=== PATIENT | female | born 1970 | race Caucasian/White ===

== ENCOUNTER 2020-07-07 22:09 | Emergency (ER) | payer BC, SELFPAY ==
[2020-07-07 22:19] VITALS: BP 191/89; PULSE 100; RESP 18; TEMP 36.6; O2SAT 98
--- NOTE | 2020-07-07 22:34 | CT_ITS ---
Procedure: CT ANGIO NECK CT ANGIO HEAD CLINICAL HISTORY: dizziness Dizziness, left upper extremity numbness and tingling COMPARISON: CT CT ANGIO HEAD from 07/07/2020 TECHNIQUE: IV Contrast: 100ml Isovue 370 Axial images obtained with sagittal and coronal reformats. All CT scans at the facility use one or more dose reduction, viz: automated exposure control, ma/kV adjustment per patient size (including targeted exams where dose is matched to indication, i.e. head), or iterative reconstruction technique. FINDINGS: CTA NECK: The aortic arch, great vessels, common carotids, internal carotids, and vertebrals have an unremarkable appearance. No stenosis occlusion or dissection evident. No enhancing lesions. Soft tissues of the upper chest and neck are unremarkable. CTA head: No aneurysm, AVM, dissection or major branch occlusion is evident. There does appear to be small infundibulum I projecting off the supraclinoid portion of the left ICA at the anterior choroidal and posterior communicating artery origins. No intracranial enhancing lesion.. IMPRESSION: Negative CTA of the neck and head Dictated by: Yannick Stone MD 07/08/2020 09:34 Yannick Stone MD in [facility] 07/08/2020 09:34
--- NOTE | 2020-07-07 22:34 | ECG_ITS ---
APPROVED REPORT Exam: Resting ECG HR:81 bpm ECG Measurements Heart Rate 81 AXES MI 158 P 69 QRSd 102 QRS 52 QT 382 T 45 QTc 443 Conclusion Normal sinus rhythm Normal ECG Electronically signed by : Rajan Echols, 07/08/2020 11:57:15
--- NOTE | 2020-07-07 22:34 | XR_ITS ---
PROCEDURE: XR CHEST 2V CLINICAL HISTORY: dizziness Smoker, dizziness, pain COMPARISON: CR Chest from 01/05/2019 FINDINGS: The cardiomediastinal silhouette and pulmonary vascularity are within normal limits. The lungs are clear without infiltrates, suspicious nodules, or pleural effusions. No acute bony abnormalities. IMPRESSION: No acute findings. Dictated by: Yannick Stone MD 07/08/2020 06:11 Yannick Stone MD in [facility] 07/08/2020 06:11
--- NOTE | 2020-07-07 22:35 | HMH.EDDIZZ ---
ED Disposition Clinical Impression: Vertigo, Hypertensive urgency Disposition: Home, Self-Care Condition on Discharge: Good Instructions: Vertigo Additional Instructions: monitor bp and see pcp for follow up Referrals: Alanna Beck [Primary Care Provider] - - Critical Care Critical Care Time: No Attestation: On 07/07/20, the high probability of a clinically significant, sudden or life threatening deterioration of the following system(s) required my full and direct attention, intervention and personal management. The time I documented below is in addition to time spent performing reported procedures but includes the following listed in this critical care notation. Medical Decision Making - Medical Records Medical records reviewed: Yes: I reviewed the patient's medical records. - Mayur Inquiry Pt receiving controlled substance: No Vital Signs: 07/07/20 22:19 07/07/20 22:59 07/07/20 23:43 Temperature 97.8 F Temperature Source Oral Pulse Rate [Right] 100 H 84 81 Respiratory Rate 18 16 16 Blood Pressure [Right Arm] 191/89 H 151/84 H 152/82 H Blood Pressure Mean [Right Arm] 123 106 105 Blood Pressure Source [Right Arm] Automatic Cuff Automatic Cuff Automatic Cuff Blood Pressure Position [Right Arm] Sitting Sitting Sitting 02 Sat by Pulse Oximetry 98 98 96 Oxygen Delivery Method Room Air Room Air Room Air 07/08/20 00:30 Temperature Temperature Source Pulse Rate [Right] 92 H Respiratory Rate Blood Pressure [Right Arm] 153/83 H Blood Pressure Mean [Right Arm] 106 Blood Pressure Source [Right Arm] Automatic Cuff Blood Pressure Position [Right Arm] Supine 02 Sat by Pulse Oximetry 96 Oxygen Delivery Method Room Air - Lab Data Lab results reviewed: Yes: I reviewed the patient's lab results. Lab Results 07/07/20 22:45: WBC 11.2 H, RBC 4.82, Hgb 15.1, Hct 43.8, MCV 90.9, MCH 31.4 H, MCHC 34.6, RDW 13.9, Plt Count 334, MPV 8.4, Neut % (Auto) 66.8, Lymph % (Auto) 23.6, [place] % (Auto) 6.4, Eos % (Auto) 2.2, Baso % (Auto) 1.1, Neut # (Auto) 7.5, Lymph # (Auto) 2.7, [place] # (Auto) 0.7, Eos # (Auto) 0.2, Baso # (Auto) 0.1 07/07/20 22:45: Sodium 141, Potassium 3.8, Chloride 106, Carbon Dioxide 28, Anion Gap 10.8, BUN 11, Creatinine 0.70, Estimated Creat Clear 119, Estimated GFR 88, Est GFR ( Amer) 107, Glucose 126 H, Calcium 10.0, Total Bilirubin 0.3, Direct Bilirubin 0.2, Conjugated Bilirubin 0.0, Indirect Bilirubin 0.1, Unconjugated Bilirubin 0.2, AST 36, ALT 30, Alkaline Phosphatase 147 H, Troponin I < 0.01, Total Protein 8.4 H, Albumin 4.9 07/08/20 00:00: SARS-CoV-2 IgG Ab (Rapid) Negative, SARS-CoV-2 IgM Ab (Rapid) Negative Result diagrams: 07/07/20 22:45 07/07/20 22:45 Orders (Tests/Meds): ED MEDICATIONS Generic Name Dose Route Start Last Admin Trade Name Freq PRN Reason Stop Dose Admin Sodium Chloride 1,000 mls @ 999 mls/hr 07/07/20 22:45 07/07/20 23:03 Sod Chlor 0.9% 1000ml Bag IV 07/07/20 23:45 999 mls/hr .Q1H1M CARMEN Administration Sodium Chloride 1,000 mls @ 999 mls/hr 07/08/20 00:30 07/08/20 00:25 Sod Chlor 0.9% 1000ml Bag IV 07/08/20 01:30 999 mls/hr .Q1H1M CARMEN Administration Discontinued Medications Generic Name Dose Route Start Last Admin Trade Name Freq PRN Reason Stop Dose Admin Iopamidol 100 ml 07/08/20 00:22 07/08/20 00:23 Iopamidol-370 (76%);100ml Bottle IV 07/08/20 00:23 100 ml ONCE ONE Administration Sodium Chloride 40 ml 07/08/20 00:22 07/08/20 00:23 0.9 % Sodium Chloride 50 Ml Vial IV 07/08/20 00:23 40 ml ONCE ONE Administration Sodium Chloride 10 ml 07/08/20 00:22 07/08/20 00:23 Sodium Chloride 0.9% 10ml Syr (Rad Only) IV 07/08/20 00:23 10 ml ONCE ONE Administration ORDERS Category Date Time Status CT angio head Stat Cat Scan 07/07/20 22:[address] angio neck Stat Cat Scan 07/07/20 22:[address] head/brain wo con Stat Cat Scan 07/07/20 22:40 Taken XR chest 2V Stat Exams 07/07/20 22:34 Taken
--- NOTE | 2020-07-07 22:40 | CT_ITS ---
PROCEDURE: CT HEAD/BRAIN WO CON CLINICAL INDICATION: DIZZINESS Dizziness and left arm tingling COMPARISON: No exams were available for comparison TECHNIQUE: Axial images obtained. All CT scans at the facility use one or more dose reduction, viz: automated exposure control, ma/kV adjustment per patient size (including targeted exams where dose is matched to indication, i.e. head), or iterative reconstruction technique. FINDINGS: No midline shift, mass effect, intracranial hemorrhage, hydrocephalus, or extra-axial fluid collection is evident. The calvarium has an unremarkable appearance. No mastoid effusion. No sinus air-fluid level. IMPRESSION: No acute intracranial finding Dictated by: Yannick Stone MD 07/08/2020 06:07 Yannick Stone MD in [place] 07/08/2020 06:07
[2020-07-07 22:59] VITALS: BP 151/84; PULSE 84; RESP 16; O2SAT 98
[2020-07-07 23:19] LABS: Basophils # 0.1 K/mm3 (0-0.2); Basophils % 1.1 % (0.1-2.0); Eosinophils # 0.2 K/mm3 (0.0-0.4); Eosinophils % 2.2 % (0.1-12.0); Hematocrit 43.8 % (37.0-47.0); Hemoglobin 15.1 g/dL (12.2-16.2); Lymphocytes # 2.7 K/mm3 (0.7-4.5); Lymphocytes % 23.6 % (10-50); Mean Corpuscular HGB Conc 34.6 g/dL (31.8-35.4); Mean Corpuscular Hemoglobin 31.4 pg (27.0-31.2); Mean Corpuscular Volume 90.9 fl (81-99); Mean Platelet Volume 8.4 fl (7.4-10.4); Monocytes # 0.7 K/mm3 (0.1-1.0); Monocytes % 6.4 % (1.7-9.3); Neutrophils # 7.5 K/mm3 (1.8-7.8); Neutrophils % 66.8 % (37.0-80.0); Platelet Count 334 K/mm3 (142-424); Red Blood Count 4.82 M/mm3 (4.20-5.40); Red Cell Distribution Width 13.9 % (11.5-17.5); White Blood Count 11.2 K/mm3 (4.8-10.8)
[2020-07-07 23:24] LABS: Chloride 106 mmol/L (98-107)
[2020-07-07 23:25] LABS: Potassium 3.8 mmoL/L (3.5-5.1); Sodium 141 mmol/L (136-145)
[2020-07-07 23:27] LABS: Alanine Aminotransferase 30 U/L (12-78); Albumin Level 4.9 g/dl (3.5-5.0); Alkaline Phosphatase 147 U/L (38-126); Anion Gap 10.8 mEq/L (5-15); Aspartate Amino Transferase 36 U/L (14-36); Bilirubin,Direct 0.2 mg/dl (0.0-0.4); Bilirubin,Indirect 0.1 mg/dL (0.0-0.9); Bilirubin,Total 0.3 mg/dl (0.2-1.3); Bilirubin,Unconjugated 0.2 mg/dL (0.0-1.1); Blood Urea Nitrogen 11 mg/dl (7-17); Carbon Dioxide 28 mmol/L (22.0-30.0); Creatinine Clearance Estimated 119 mL/min (50-200); Estimated Glomerular Filt Rate 88 ml/min (>60); GFR (African American) 107 ML/MIN (>60); Total Protein,Serum 8.4 g/dl (6.3-8.2)
[2020-07-07 23:28] LABS: Glucose 126 mg/dl (74-100)
[2020-07-07 23:43] VITALS: BP 152/82; PULSE 81; RESP 16; O2SAT 96
--- NOTE | 2020-07-07 23:43 | PC.NURSE ---
pt to RAD
[2020-07-07 23:47] LABS: Troponin I < 0.01 ng/ml (0.00-0.034)
--- NOTE | 2020-07-08 00:11 | PC.NURSE ---
pt back from RAD
[2020-07-08 00:30] VITALS: BP 153/83; PULSE 92; O2SAT 96
[2020-07-08 00:41] LABS: Coronavirus 19 IgG Antibody Negative (Negative); Coronavirus 19 IgM Antibody Negative (Negative)
[2020-07-08 00:56] VITALS: BP 151/89; PULSE 77; RESP 16; TEMP 36.9
[2020-07-08 01:40] LABS: T4 (Thyroxine) 9.8 ug/dl (5.53-11.0)
[2020-07-08 01:54] LABS: Thyroid Stimulating Hormone 1.89 uIU/mL (0.465-4.68)
== END 2020-07-08 01:08 | disposition home or self-care (01) ==
PROVIDERS: Emergency Provider Emergency Medicine; PCP Nurse Practitioner Family
DX: I16.0 Hypertensive urgency (principal); Z01.84 Encounter for antibody response examination; F17.210 Nicotine dependence, cigarettes, uncomplicated
CPT/HCPCS: 70450; 70496; 70498; 71046; 80048; 80076; 84436; 84443; 84484; 85025; 86328; 93005; 93041; 96365; 96366; 99283; Q9967

== ENCOUNTER 2020-10-19 13:54 | Emergency (ER) | payer BC, SELFPAY ==
[2020-10-19 14:07] VITALS: BP 182/92; PULSE 95; RESP 18; TEMP 36.6; O2SAT 100; BMI 29.2
[2020-10-19 14:09] VITALS: BP 153/69; PULSE 92; RESP 14; TEMP 36.3; O2SAT 98; BMI 30.9
--- NOTE | 2020-10-19 14:17 | XR_ITS ---
PROCEDURE: XR ANKLE LT MIN 3V CLINICAL INDICATION: rolled ankle COMPARISON: No exams were available for comparison FINDINGS: No fracture or dislocation. No lytic or blastic change. There is normal mineralization. The ankle mortise is congruent and the lateral clear space is preserved. Calcaneal spur is noted. No significant soft tissue abnormality. Other findings: IMPRESSION: No acute findings. Dictated by: Lisa Ward 10/19/2020 14:49 Lisa Ward in [place] 10/19/2020 14:49
--- NOTE | 2020-10-19 14:22 | HMH.EDUTC ---
[facility] [place] Clinical Impression: Ankle sprain Qualifiers: Encounter type: initial encounter Involved ligament of ankle: other ligament Laterality: left Qualified Code(s): S93.492A - Sprain of other ligament of left ankle, initial encounter Disposition: Home, Self-Care Condition on Discharge: Good Instructions: How to Use Crutches, Ankle Sprain, DI for Ankle Sprain, How To Perform RICE (Rest, Ice, Compress, Elevate), How to Use a Walking Boot Additional Instructions: *weight bearing as tolerated *RICE, Rest the extremity, Ice 15-20 minutes 3-4 times daily, Compress- wear the alvin wrap as discussed as much as possible to help reduce swelling and pain, Elevate the extremity when at rest *Alvin wrap/walking boot is for support and help control swelling, use it except in the shower. Be sure that is not to tight but not to loose either *Elevate when resting *Ibuprofen every 6-8 hours as needed for pain an inflammation. If need something more can take Tylenol in between doses of Ibuprofen to help Immediately follow up with your family doctor for new or worsening of symptoms, or no noticeable improvement over the next 3-5 days Follow up with Podiatry if no improvement Followup with your Family Doctor if no improvement or any worsening of symptoms Return if needed Straight to ER if any life threatening symptoms Referrals: Alanna Beck [Primary Care Provider] - As needed Lala Flowers DPM [Staff Physician] - Time of Disposition: 14:55 Medical Decision Making - Mayur Inquiry Pt receiving controlled substance: No Mayur was queried for this patient: No Vital Signs: 10/19/20 14:07 10/19/20 14:09 Temperature 97.9 F 97.4 F L Temperature Source Oral Tympanic Pulse Rate [Left Radial] 95 H Pulse Rate [Right] 92 H Respiratory Rate 18 14 Blood Pressure [Right Arm] 182/92 H 153/69 H Blood Pressure Mean [Right Arm] 122 97 Blood Pressure Source [Right Arm] Automatic Cuff Automatic Cuff Blood Pressure Position [Right Arm] Sitting Sitting 02 Sat by Pulse Oximetry 100 98 Oxygen Delivery Method Room Air Room Air - Radiology Data #1 Image(s): Ankle Image Reviewed: Yes I have reviewed radiologist's interpretation IMPRESSION: No acute findings. [facility] [place] - General Stated complaint: [id number] left ankle injury, home Time Seen by Provider: 10/19/20 14:22 Mode of Arrival: Wheelchair Source of Information: Patient Limitations: No Limitations Description of Symptoms (Recalled from Triage Doc. by RN): pt was coming down a ladder in the barn and missed the second to last slat. she rolled her L ankle and is having 5/10 pain. HEENT Symptoms (Recalled from RN notes): No Resp Symptoms (Recalled from RN notes): No Skin Symptoms (Recalled from RN notes): No MS Symptoms (Recalled from RN notes): Yes (L ankle pain) Functional Status (Recalled from RN notes): na - History of Present Illness Provider Complaint: Patient state that she was coming down the ladder in the barn when she missed the first and second slat and she fell down and rolled her left ankle and felt a pop State that she has been having pain in left ankle ever since she so came in to get it checked - Related Data Home Medications Medication Instructions Recorded Confirmed No Known Home Medications 01/05/19 01/05/19 Allergies Allergy/AdvReac Type Severity Reaction Status Date / Time No Known Allergies Allergy Verified 10/19/20 14:19 - Worker's Comp Is this a Worker's Comp case?: No [facility] History - Hepatitis A Screen Drug use history?: No High risk sexual behaviors?: No History of sexually transmitted infection?: No Currently employed?: No Childcare worker?: No Do you have indoor plumbing?: Yes Do you have electricity?: Yes Attestation statement:: This patient has been screened for Hepatitis A risk factors. I have reviewed the patient's past medical history: Yes Medical History: Denies:: Diabetes Mellitus Type 1, Diabetes Mellitus Typ
[2020-10-19 15:19] VITALS: BP 142/71; PULSE 85; RESP 14; TEMP 36.6
== END 2020-10-19 15:21 | disposition home or self-care (01) ==
LOC: ER 14:08 → UTC 14:09
PROVIDERS: Emergency Provider Nurse Practitioner; PCP Nurse Practitioner Family
DX: S93.492A Sprain of other ligament of left ankle, initial encounter (principal); W11.XXXA Fall on and from ladder, initial encounter; Y92.71 Barn as the place of occurrence of the external cause; F17.210 Nicotine dependence, cigarettes, uncomplicated
CPT/HCPCS: 29515; 73610; 99202; G0463

== ENCOUNTER 2022-05-21 09:21 | Emergency (ER) | payer BC, SELFPAY ==
[2022-05-21 10:40] VITALS: BP 0/0; PULSE 0; RESP 0; TEMP -17.7; TEMP 0
== END 2022-05-21 10:42 | disposition left against medical advice (07) ==
PROVIDERS: Emergency Provider Nurse Practitioner
DX: M79.641 Pain in right hand (principal); F17.210 Nicotine dependence, cigarettes, uncomplicated; Z53.21 Procedure and treatment not carried out due to patient leaving prior to being seen by health care provider

== ENCOUNTER 2022-06-01 08:42 | Emergency (ER) | payer BC, SELFPAY ==
--- NOTE | 2022-06-01 08:50 | XR_ITS ---
FINAL REPORT CLINICAL HISTORY: RIGHT WRIST/HAND PAIN FINDINGS: 3 views of the right hand were obtained. There is no acute fracture or dislocation. There is mild narrowing of the distal and proximal interphalangeal joints consistent with osteoarthritis. There is no soft tissue abnormality. IMPRESSION: No acute process. Reviewed, Interpreted and Dictated by Sixto Min MD Transcribed by Charles Nicholas Authenticated and [facility]
--- NOTE | 2022-06-01 08:50 | XR_ITS ---
FINAL REPORT CLINICAL HISTORY: RIGHT WRIST/HAND PAIN FINDINGS: 3 views of the right wrist were obtained. There is no acute fracture or dislocation. The joint spaces are intact. There is no soft tissue abnormality. IMPRESSION: No acute abnormality. Reviewed, Interpreted and Dictated by Sixto Min MD Transcribed by Charles Nicholas Authenticated and [facility]
[2022-06-01 10:22] VITALS: BP 156/91; PULSE 93; RESP 18; TEMP 36.7; O2SAT 97
--- NOTE | 2022-06-01 10:23 | EXP.UTC ---
Discharge Plan Disposition Patient Disposition: Home, Self-Care Condition: Good Prescriptions Prescriptions: New methylprednisolone 4 mg Tablets,Dose Pack 4 mg PO DIRECTED Qty: 21 0RF Referrals Follow up/Referrals: Osmani Gonzalez JR, MD [Physician] - See instructions Provider,MD Kerri [Primary Care Provider] - See instructions Activity Restrictions/Add. Instructions Additional Instructions/Restrictions: Rest the extremity, apply ice for 15 minutes as tolerated three or four times per day, Wear the chavez wrap for compression, Elevate the extremity as tolerated while you are resting. Take ibuprofen for pain. I sent in a prescription to your pharmacy. Follow up with Dr. Gonzalez (orthopedics). I put in a referral but you need to call his office and schedule an appointment. Follow up with your regular doctor. GO TO THE ER FOR ANY WORSENING SYMPTOMS Clinical Impressions Clinical Impression: Right wrist tendonitis, Right wrist pain Stand Alone Forms Stand Alone Forms: Work/School Release Instructions Patient Instructions: DI for Tendinitis, DI for Wrist Pain Discharge ED Provider: Damien Fall [facility] General Stated complaint: RT wrist pain, no accident Time Seen by Provider: 06/01/22 10:23 History of Present Illness Provider Complaint: She states that for the past 2 days she has had right wrist pain that is worse when she flexes her wrist. She denies any injury. She states that her symptoms began after she had to change a flat tire and strain with her right arm removing it. Related Data Previous Rx's Medication Instructions Recorded methylprednisolone 4 mg tablets in 4 mg PO DIRECTED #21 tabs 06/01/22 a dose pack Allergies Allergy/AdvReac Type Severity Reaction Status Date / Time No Known Allergies Allergy Verified 06/01/22 10:30 [facility] Social History Smoking Status: Current every day smoker tobacco type: cigarettes packs per day: 30 alcohol intake: never current occupational status: retired Travel in the last 8 weeks: None ROS Obtained: Yes All systems reviewed & no additional complaints except as documented Constitutional Constitutional: Denies chills and Denies fever(s) Integumentary/Breasts Skin/Breast: Denies redness, Denies rash and Denies wounds Neurologic Neurologic: Denies paresthesias Physical Exam General General appearance: alert and in no apparent distress Head Head exam: atraumatic, normocephalic and normal inspection Eye Eye exam: Present normal appearance, PERRL and EOMI ENT ENT exam: Present normal exam, normal oropharynx, mucous membranes moist, TM's normal bilaterally and normal external ear exam Neck Neck exam: Present normal inspection, full ROM and trachea midline; Absent meningismus or lymphadenopathy Chest Chest inspection: Present normal inspection and symmetric chest wall rise; Absent tenderness Respiratory Respiratory exam: Present normal lung sounds bilaterally; Absent respiratory distress Cardiovascular Cardiovascular exam: Present regular rate and normal rhythm; Absent JVD Abdominal Exam Abdominal exam: Present soft and normal bowel sounds; Absent distention, tenderness or guarding Extremities Exam Extremities exam: Present normal capillary refill; Absent calf tenderness Expanded Upper Extremity Exam Right: Elbow exam: Present normal inspection and full ROM; Absent tenderness Forearm/Wrist exam: Present full ROM and tenderness; Absent swelling, abrasion, laceration, ecchymosis, deformity, crepitus, dislocation, erythema, tenderness over anatomical snuff box or pain with axial thumb loading Hand exam: Present normal inspection and full ROM; Absent tenderness Back Exam Back exam: Present normal inspection; Absent tenderness Neurological Exam Neurological exam: Present alert and oriented X3 Psychiatric Psychiatric exam: Present normal affect and normal m
[2022-06-01 10:46] VITALS: BP 156/91; PULSE 93; RESP 18; TEMP 36.7
== END 2022-06-01 10:47 | disposition home or self-care (01) ==
PROVIDERS: Emergency Provider Nurse Practitioner Family
DX: M77.8 Other enthesopathies, not elsewhere classified (principal)
CPT/HCPCS: 73110; 73130; 99213; G0463

== ENCOUNTER 2022-06-21 14:19 | Emergency (ER) | payer BC, SELFPAY ==
[2022-06-21 15:20] VITALS: BP 0/0; PULSE 0; RESP 0; TEMP -17.7; TEMP 0
== END 2022-06-21 15:21 | disposition left against medical advice (07) ==
PROVIDERS: Emergency Provider Nurse Practitioner Family
DX: R06.02 Shortness of breath (principal); R09.89 Other specified symptoms and signs involving the circulatory and respiratory systems; F17.210 Nicotine dependence, cigarettes, uncomplicated; Z53.21 Procedure and treatment not carried out due to patient leaving prior to being seen by health care provider

== ENCOUNTER → 2022-07-01 12:46 | Outpatient (CLI) | payer BC, SELFPAY ==
--- NOTE | 2022-07-01 12:47 | MR_ITS ---
FINAL REPORT CLINICAL HISTORY: right wrist pain x 1 month after injury , pt unsure what she did pain when moving prior right wrist xray here FINDINGS: Multiplanar MR imaging of the right wrist was performed without contrast. The bony structures are intact without evidence of fracture, bone bruise or marrow edema. There is no evidence of intrinsic ligament injury. There is a partial tear at the ulnar attachment of the triangular fibrocartilage. There is extensor pollicis brevis and abductor pollicis longus tendinosis, tenosynovitis, and partial tears. There is a small lobular ganglion in the volar aspect of the radiocarpal joint measuring 9 mm in transverse dimension. No focal abnormality is identified of the median nerve. IMPRESSION: Partial tear of the triangle fibrocartilage. Extensor pollicis brevis and abductor pollicis longus tenosynovitis, tendinosis, and partial tears. Ganglion as above. Reviewed, Interpreted and Dictated by Dom Zuluaga III, MD Transcribed by Xochitl Contreras Authenticated and [facility]
== END ==
PROVIDERS: Visit Provider Orthopaedic Surgery
DX: M25.531 Pain in right wrist (principal); M77.8 Other enthesopathies, not elsewhere classified
CPT/HCPCS: 73221

== ENCOUNTER 2024-11-13 08:22 | Emergency (ER) | payer BC, SELFPAY ==
[2024-11-13 08:30] VITALS: BP 169/76; PULSE 99; RESP 16; TEMP 36.5; O2SAT 100; BMI 29.2
--- NOTE | 2024-11-13 08:39 | XR_ITS ---
FINAL REPORT CLINICAL HISTORY: dorsal mid foot pain, overuse injury FINDINGS: RIGHT FOOT 3 views of the right foot were obtained. There is no acute fracture or dislocation. Visualized joint spaces are normally aligned. There is mild multijoint degenerative disease. There is a prominent inferior calcaneal spur. Soft tissues are unremarkable. IMPRESSION: No acute bony abnormality. Reviewed, Interpreted and Dictated by Juliane Evans MD Transcribed by Linda Krishnan Authenticated and . [facility]
[2024-11-13] MEDS: DEXAMETHASONE 4MG TABLET 10 MG PO (08:45)
--- NOTE | 2024-11-13 08:55 | [facility].EDGENADL ---
Discharge Plan Disposition Patient Disposition: Home, Self-Care Prescriptions Prescriptions: No Action No Known Home Medications Referrals Follow up/Referrals: Provider,Referral, MD [Primary Care Provider] - See instructions Activity Restrictions/Add. Instructions Additional Instructions/Restrictions: Call your family doctor to establish care for this visit to the emergency department and schedule follow-up within 48 hours to ensure improvement. If you have any worsening of your condition or any other concerning signs or symptoms, return to the emergency department or your primary care doctor for further evaluation. Clinical Impressions Clinical Impression: Acute pain of right foot Print Language Print Language: Montenegrin Discharge ED Provider: John Paul Paez General Adult HPI General Chief complaint: Extremity Injury, Lower Stated complaint: Right foot pain swelling diff weight bearing Time Seen by Provider: 11/13/24 08:31 Mode of Arrival: Ambulatory Source of Information: Patient Description of Symptoms (Recalled from ER Triage Doc. by RN): patient states she has had right foot pain for one month. no known injuries History of Present Illness HPI narrative: Please note that above description of symptoms, in this electronic medical record under categorization of recalled from ER triage doctor by RN are reflective of an initial nursing assessment, however, is not reflective of my full history and physical exam that was personally taken and clarified. Consequentially, this preceding description of symptoms, which may include the patient's categorized chief complaint in the EMR, do not reflect my personal clinical impression, and the ultimate description of history of present illness and patient stated complaints should be deferred to this section of the note. Unless stated otherwise or congruent with this section of the note, additional signs, symptoms, or incongruence should be interpreted as inaccurate with my clinical impression. Related Data Home Medications ?Medication ?Instructions ?Recorded ?Confirmed No Known Home Medications 07/07/22 07/07/22 Allergies Allergy/AdvReac Type Severity Reaction Status Date / Time No Known Allergies Allergy Verified 11/13/24 08:37 [facility] Disclaimer: The information contained in this section may have been updated after the patient was seen, as this information can be updated by other users. Social History Smoking Status: Current every day smoker tobacco type: cigarettes packs per day: 30 alcohol intake: never current occupational status: retired Travel in the last 8 weeks: None Have you lived/traveled outside [place] in past 30 days?: No Contact w/someone who lives/traveled outside [place] past 30 days?: No Exposure to someone with infectious disease in past 14 days?: No Do you have a fever (greater than 100.4 F or 38 C)?: No Have you tested positive for COVID-19: No Exposed to someone with COVID-19 in past 14 days?: No Do you have a sore throat?: No Do you have a cough?: No Do you have any weakness?: No Do you have any diarrhea?: No Are you experiencing any unusual bleeding?: No Do you have any muscle aches/pain?: No Do you have any abdominal pain?: No Are you experiencing loss of taste or smell?: No Other Medical History Have you received the Flu Vaccine for this season: No Have you received the Pneumonia Vaccine: No ROS Obtained: Yes All systems reviewed & no additional complaints except as documented Physical Exam General General appearance: alert Head Head exam: atraumatic and normocephalic Eye Eye exam: Present normal appearance, PERRL and EOMI Neck Neck exam: Present normal inspection, full ROM and trachea midline Respiratory Respiratory exam: Absent respiratory distress, wheezes, stridor, accessory muscle use or prolonged expiratory phase Cardiovascular Cardiovascular exam: Present other (Pulses equal symmetric in upper and lower extremities) Abdominal Exam Abdominal exam: Present soft; Absent distention, tenderness or pulsatile mass Extremities Exam Extremities exam: Present other (Tenderness about dorsum of foot overlying navicular/cuneiforms); Absent edema Neurological Exam Neurological exam: Present alert, oriented X3 and CN II-XII intact; Absent motor sensory deficit Skin Skin exam: Present warm and dry; Absent diaphoresis or erythema Medical Decision Making Medical Records Medical records reviewed: Yes I reviewed the patient's medical records. Screening: Per USPSTF and CDC recommendations, given the prevalence of disease in our region, it is our hospital?s policy to screen for HIV and viral Hepatitis for all patients aged 18 and over and those with ongoing risk factors. Mayur Inquiry Pt receiving controlled substance: No Mayur was queried for this patient: No Vital Signs: 11/13/24 08:30 11/13/24 10:31 Temperature 97.7 F 98.1 F Temperature Source Oral Oral Pulse Rate 98 H Pulse Rate [Right Radial] 99 H Respiratory Rate 16 15 Blood Pressure 156/68 H Blood Pressure [Right Arm] 169/76 H Blood Pressure Mean [Right Arm] 107 Blood Pressure Source Automatic Cuff Blood Pressure Source [Right Arm] Automatic Cuff Blood Pressure Position Sitting Blood Pressure Position [Right Arm] Sitting 02 Sat by Pulse Oximetry 100 Oxygen Delivery Method Room Air Room Air Orders (Tests/Meds): ED MEDICATIONS Discontinued Medications Generic Name Dose Route Start Last Admin Trade Name Soledad PRN Reason Stop Dose Admin Dexamethasone 10 mg 11/13/24 08:39 11/13/24 08:45 Dexamethasone 4mg Tablet PO 11/13/24 08:40 10 mg ONCE ONE Administration ORDERS Category Date Time Status Foot XR right minimum 3 views [XR foot RT min 3V] Stat Exams 11/13/24 08:39 Completed Medical Decision Narrative: This is a 54-year-old female with no relevant medical history presenting with right foot pain. Is been going on for a month. Does not know any obvious injury. States that it is made worse with continued use, made worse with prolonged standing, yard work, etc. Has not take anything for the pain and does not notice anything that makes it better other than resting and elevating. States that intermittently swells up. Last time it swelled up was yesterday, 11/12 after doing yard work. No other swollen or hot joints, no injury to the area. No numbness, tingling, weakness, bruising, etc. History obtained with patient and significant other. On arrival, very clinically well. She has some tenderness without erythema, edema, or outward signs of abnormality to the dorsum of the foot on the right side at the navicular and cuneiforms. Neurovascularly intact, range of motion full and intact. States that plantar flexing the foot and ankle is a little more tender than dorsiflexing. Differential includes sprain, strain, hairline fracture, less likely dislocation, among others. X-rays obtained, on independent interpretation, arthritis with no bony abnormality. Because patient at baseline without signs or symptoms of clinical decompensation, deemed appropriate for discharge. Results were relayed to patient who voiced understanding and were agreeable to outpatient management and follow up. I discussed my clinical impression with patient and answered all questions. At this time, the evidence for any other entities in the differential is insufficient to warrant any further testing or ED observation. This was explained as well. Advisory was given that persistent or worsening symptoms require further evaluation. I confirmed the understanding of this discussion. Batting Machine Operator disclaimer Much of this encounter note is an electronic regulatory compliance coordinator spoken language to printed text. Electronic regulatory compliance coordinator of the spoken language may permit errors. Although I have reviewed the note, some errors may still exist. Critical Care Critical Care Time Critical Care Time: No
[2024-11-13 10:31] VITALS: BP 156/68; PULSE 98; RESP 15; TEMP 36.7; O2SAT 99
== END 2024-11-13 10:32 | disposition home or self-care (01) ==
PROVIDERS: Emergency Provider Emergency Medicine
DX: M79.671 Pain in right foot (principal)
CPT/HCPCS: 73630; 99283; J8540